=== PATIENT | female | born 1965 | race Caucasian/White ===

== ENCOUNTER → 2019-10-21 15:23 | Outpatient (BNVA) | payer BC, SELFPAY | PROVIDERS: Family Provider Nurse Practitioner Family; PCP Nurse Practitioner Family; Visit Provider Nurse Practitioner Family | DX: E11.9 Type 2 diabetes mellitus without complications (principal) | CPT/HCPCS: 83036 ==

== ENCOUNTER → 2020-04-21 15:59 | Outpatient (BNVA) | payer BC, SELFPAY | PROVIDERS: Family Provider Nurse Practitioner Family; PCP Nurse Practitioner Family; Visit Provider Nurse Practitioner Family | DX: E11.9 Type 2 diabetes mellitus without complications (principal) | CPT/HCPCS: 83036 ==

== ENCOUNTER → 2020-10-20 15:12 | Outpatient (BNVA) | payer BC, SELFPAY | PROVIDERS: Family Provider Nurse Practitioner Family; PCP Nurse Practitioner Family; Visit Provider Nurse Practitioner Family | DX: E11.9 Type 2 diabetes mellitus without complications (principal); M65.311 Trigger thumb, right thumb; E04.9 Nontoxic goiter, unspecified | CPT/HCPCS: 82043; 83036 ==

== ENCOUNTER 2021-01-21 16:19 | Emergency (ER) | payer BC, SELFPAY ==
[2021-01-21 16:41] VITALS: BP 134/89; PULSE 100; RESP 17; TEMP 37.3; O2SAT 96
--- NOTE | 2021-01-21 16:54 | W.ED.COVID ---
Documented by User: Rayray Aleman MD 01/23/21 11:26 HPI - COVID General: Chief Complaint: COVID symptoms Stated Complaint: SOB COUGH N/V Time Seen by Provider: 01/21/21 16:53 Triage information: No fever, cough or shortness of breath. No known COVID + exposure last 14 days History of Present Illness: HPI Narrative: Ms Del Toro is a 55-year-old lady with history of diabetes on oral agents who presents emergency department due to Covid-like symptoms. Symptom onset was approximately 6 days ago. She endorses initially having diarrhea, nausea, vomiting. She subsequently developed cough, headache, fevers, chills, and generalized malaise. Overall the course of symptoms has persisted and worsened. The intensity is moderate to severe. Her is ill with similar symptoms. She has not been vaccinated against Covid. There are no other specific factors the patient can identify as far as provoking, exacerbating, alleviating with exception of [id number] Tylenol which temporarily improves her symptoms. COVID Results: SARS-CoV-2 Antigen (Rapid) Negative (Negative) 01/21/21 17:46 01/21/21 SARS-CoV-2 RNA (RT-PCR) Pending 01/21/21 17:46 01/21/21 Review of Systems General: Reports: 10 or more systems reviewed and unremarkable except in HPI and below Narrative: CONSTITUTIONAL: positive for fever, fatigue, weakness EYES - denies pain, denies loss of vision EARS - denies ear issues. NOSE - denies congestion or rhinorrhea. THROAT - denies sore throat or difficulty swallowing. CARDIOVASCULAR - Chest discomfort with cough but not at rest RESPIRATORY - postiive fpr shortness of breath and cough GASTROINTESTINAL - positive for abdominal pain, nausea, and vomiting, no changes in bowel habits GENITOURINARY - denies dysuria or urinary frequency MUSCULOSKELETAL- denies deformity. Generalized arthralgias and myalgias. SKIN - denies rashes or new changed skin lesions NEUROLOGIC - denies focal weakness or sensory changes HEMATOLOGIC/LYMPHATIC - denies easy bruising or lymphadenopathy. [facility] ED PFS: Medical History (Updated 01/21/21 @ 19:26 by Rayray Aleman MD) Type 2 diabetes mellitus Social History Smoking and tobacco status: former smoker Alcohol intake: never Physical Exam Narrative: EXAM NARRATIVE: GENERAL/CONSTITUTIONAL - mildly ill-appearing. No acute distress. Eyes - PERRL, no conjunctival injection ENMT - Atraumatic external nose and ears. Moist mucous membranes NECK - supple. trachea midline CARDIOVASCULAR - regular rate and rhythm. Peripheral pulses 2+ and equal RESPIRATORY - clear to auscultation bilaterally. No retractions or accessory muscle use. ABDOMEN/GI - Mildly tender to palpation generally. No tenderness to percussion or evidence of peritonitis MSK - Extremities without obvious deformity or tenderness to palpation SKIN - Warm, Dry NEURO - alert and appropriately oriented. strength and sensation intact. Moves all extremities equally. PSYCH - Appropriate mood and affect Course ED course: - Patient was seen and evaluated by me at bedside - Patient placed on cardiac monitors, IV access obtained - Initial evaluation notable for mildly ill appearance, no acute distress -Symptom treatments ordered - Labs notable for no leukocytosis, mild increased platelet count. Metabolic panel notable for mild dehydration and elevated lactate. CRP elevated. No evidence of urinary tract infection. - Given degree of abdominal discomfort associated with symptoms CT scan imaging ordered. Given respiratory symptoms chest x-ray ordered. Initial review of chest x-ray with minimal opacities which are somewhat underwhelming given patient's initial clinical appearance. - Patient care handed off to overnight ED physician pending completion of CT scan and reevaluation. Vital Signs: Vital signs: Vital Signs Temperature 99.2 F 01/21/21 16:41 Pulse Rate 94 01/21/21 20:40 Respiratory Rate 24 H 01/21/21 20:40 Blood Pressure 110/74 01/21/21 20:40 Pulse Oximetry 94 01/21/21 20:40 [facility] - COVID Medical Records: Attestation: I reviewed the patient's medical records. Lab Data: Attestation: I reviewed the patient's lab results. Labs: Lab Results 01/21/21 01/21/21 01/21/21 Range/Units 16:48 17:28 17:46 WBC (4.0-10.0) 10^3/ uL RBC (4.1-5.3) 10^6/u L Hgb (11.5-15.3) g/dL Hct (37.0-47.0) % MCV (81-99) fl MCH (28.0-34.0) pg MCHC (30.0-36.0) g/dL RDW (12.1-15.1) % Plt Count (130-400) 10^3/c mm MPV (7.4-10.4) fL Neut % (Auto) % Lymph % (Auto) % Bartholomew % (Auto) % Eos % (Auto) % Baso % (Auto) % Neut # (Auto) (1.8-7.7) 10^3/u L Lymph # (Auto) (0.8-4.8) 10^3/u L Bartholomew # (Auto) (0.2-0.9) 10^3/u L Eos # (Auto) (0.0-0.8) 10^3/u L Baso # (Auto) (0.0-0.1) 10^3/u L Nucleated RBC % (a uto) % Nucleated RBCs # /100WBC Sodium (136-145) mmol/L Potassium (3.5-5.1) mmol/L Chloride (98-107) mmol/L Carbon Dioxide (22-29) mmol/L Anion Gap (5-19) BUN (6-20) mg/dL Creatinine (0.5-0.9) mg/dL GFR Calculation (90-130) mL/min Glucose (65-115) mg/dL POC Glucose 183 H (70-110) mg/dL Calculated Osmolal ity (285-295) mOsm/k g Lactate (0.5-2.2) mmol/L Calcium (8.5-10.5) mg/dL Total Bilirubin (0.15-1.2) mg/dL AST (0-32) U/L ALT (0-33) U/L Alkaline Phosphata se (35-105) IU/L Troponin T Baselin e (0-10) ng/L Troponin T 120 Min [place] (0-10) ng/L Delta Troponin T (0-10) ABS# C-Reactive Protein (0.0-4.9) mg/L Total Protein (6.6-8.7) g/dL Albumin (3.5-5.2) g/dL Globulin (1.3-4.6) g/dL Procalcitonin (0-0.5) ng/mL TSH (0.27-4.20) uIU/ mL Urine Color Dark yellow (Yellow) Urine Appearance Clear (CLEAR) Urine pH 5 (5-7) Ur Specific Gravit y 1.015 (1.005-1.030) Urine Protein Trace (Negative) Urine Glucose (UA) Norm (Normal) Urine Ketones 1+ H (Negative) Urine Blood Neg (Negative) Urine Nitrate Negative (Negative) Urine Bilirubin 1+ H (Negative) Urine Urobilinogen 1 H (Negative) mg/dL Ur Leukocyte Ct ase Negative (Negative) Urine RBC None (0-2) /hpf Urine WBC 0-4 H (0-5) /hpf Ur Squamous Epith Cells 5-10 H (0-5) /hpf Amorphous Sediment Not Reportable Urine Bacteria Trace (NONE) /hpf SARS-CoV-2 Ag (Rap id) Negative (Negative) 01/21/21 01/21/21 01/21/21 Range/Units 17:47 17:47 17:47 WBC 9.0 (4.0-10.0) 10^3/ uL RBC 4.73 (4.1-5.3) 10^6/u L Hgb 14.3 (11.5-15.3) g/dL Hct 41.5 (37.0-47.0) % MCV 87.7 (81-99) fl MCH 30.2 (28.0-34.0) pg MCHC 34.5 (30.0-36.0) g/dL RDW 11.7 L (12.1-15.1) % Plt Count 493 H (130-400) 10^3/c mm MPV 9.3 (7.4-10.4) fL Neut % (Auto) 70.4 % Lymph % (Auto) 19.3 % Bartholomew % (Auto) 9.2 % Eos % (Auto) 0.2 % Baso % (Auto) 0.2 % Neut # (Auto) 6.34 (1.8-7.7) 10^3/u L Lymph # (Auto) 1.7 (0.8-4.8) 10^3/u L Bartholomew # (Auto) 0.8 (0.2-0.9) 10^3/u L Eos # (Auto) 0.0 (0.0-0.8) 10^3/u L Baso # (Auto) 0.0 (0.0-0.1) 10^3/u L Nucleated RBC % (a uto) 0 % Nucleated RBCs # 0.0 /100WBC Sodium 136 (136-145) mmol/L Potassium 3.3 L (3.5-5.1) mmol/L Chloride 92 L (98-107) mmol/L Carbon Dioxide 27 (22-29) mmol/L Anion Gap 20.3 H (5-19) BUN 19 (6-20) mg/dL Creatinine 0.7 (0.5-0.9) mg/dL GFR Calculation 86.9 L (90-130) mL/min Glucose 148 H (65-115) mg/dL POC Glucose (70-110) mg/dL Calculated Osmolal ity 287 (285-295) mOsm/k g Lactate 2.9 H (0.5-2.2) mmol/L Calcium 9.2 (8.5-10.5) mg/dL Total Bilirubin 0.4 (0.15-1.2) mg/dL AST 27 (0-32) U/L ALT 22 (0-33) U/L Alkaline Phosphata se 76 (35-105) IU/L Troponin T Baselin e (0-10) ng/L Troponin T 120 Min [place] (0-10) ng/L Delta Troponin T (0-10) ABS# C-Reactive Protein 39.3 H (0.0-4.9) mg/L Total Protein 7.3 (6.6-8.7) g/dL Albumin 4.2 (3.5-5.2) g/dL Globulin 3.1 (1.3-4.6) g/dL Procalcitonin 0.11 (0-0.5) ng/mL TSH 3.83 (0.27-4.20) uIU/ mL Urine Color (Yellow) Urine Appearance (CLEAR) Urine pH (5-7) Ur Specific Gravit y (1.005-1.030) Urine Protein (Negative) Urine Glucose (UA) (Normal) Urine Ketones (Negative) Urine Blood (Negative) Urine Nitrate (Negative) Urine Bilirubin (Negative) Urine Urobilinogen (Negative) mg/dL Ur Leukocyte Ct ase (Negative) Urine RBC (0-2) /hpf Urine WBC (0-5) /hpf Ur Squamous Epith Cells (0-5) /hpf Amorphous Sediment Urine Bacteria (NONE) /hpf SARS-CoV-2 Ag (Rap id) (Negative) 01/21/21 01/21/21 Range/Units 17:47 19:45 WBC (4.0-10.0) 10^3/ uL RBC (4.1-5.3) 10^6/u L Hgb (11.5-15.3) g/dL Hct (37.0-47.0) % MCV (81-99) fl MCH (28.0-34.0) pg MCHC (30.0-36.0) g/dL RDW (12.1-15.1) % Plt Count (130-400) 10^3/c mm MPV (7.4-10.4) fL Neut % (Auto) % Lymph % (Auto) % Bartholomew % (Auto) % Eos % (Auto) % Baso % (Auto) % Neut # (Auto) (1.8-7.7) 10^3/u L Lymph # (Auto) (0.8-4.8) 10^3/u L Bartholomew # (Auto) (0.2-0.9) 10^3/u L Eos # (Auto) (0.0-0.8) 10^3/u L Baso # (Auto) (0.0-0.1) 10^3/u L Nucleated RBC % (a uto) % Nucleated RBCs # /100WBC Sodium (136-145) mmol/L Potassium (3.5-5.1) mmol/L Chloride (98-107) mmol/L Carbon Dioxide (22-29) mmol/L Anion Gap (5-19) BUN (6-20) mg/dL Creatinine (0.5-0.9) mg/dL GFR Calculation (90-130) mL/min Glucose (65-115) mg/dL POC Glucose (70-110) mg/dL Calculated Osmolal ity (285-295) mOsm/k g Lactate (0.5-2.2) mmol/L Calcium (8.5-10.5) mg/dL Total Bilirubin (0.15-1.2) mg/dL AST (0-32) U/L ALT (0-33) U/L Alkaline Phosphata se (35-105) IU/L Troponin T Baselin e 8 (0-10) ng/L Troponin T 120 Min [place] 9.29 (0-10) ng/L Delta Troponin T 1.29 (0-10) ABS# C-Reactive Protein (0.0-4.9) mg/L Total Protein (6.6-8.7) g/dL Albumin (3.5-5.2) g/dL Globulin (1.3-4.6) g/dL Procalcitonin (0-0.5) ng/mL TSH (0.27-4.20) uIU/ mL Urine Color (Yellow) Urine Appearance (CLEAR) Urine pH (5-7) Ur Specific Gravit y (1.005-1.030) Urine Protein (Negative) Urine Glucose (UA) (Normal) Urine Ketones (Negative) Urine Blood (Negative) Urine Nitrate (Negative) Urine Bilirubin (Negative) Urine Urobilinogen (Negative) mg/dL Ur Leukocyte Ct ase (Negative) Urine RBC (0-2) /hpf Urine WBC (0-5) /hpf Ur Squamous Epith Cells (0-5) /hpf Amorphous Sediment Urine Bacteria (NONE) /hpf SARS-CoV-2 Ag (Rap id) (Negative) EKG Data: EKG 1: Attestation: I personally reviewed and interpreted this EKG as follows: EKG interpretation date: 01/21/21 EKG interpretation time: 17:20 Prior EKG tracings: not available for review Ischemic changes: non-specific ST-T wave changes Interpretation: Twelve-lead EKG shows a regular sinus rhythm at a rate of 96. WA interval 159, QRS duration 104, QTc 476. Left axis deviation. Interpretation: Sinus rhythm. Nonspecific ST segment abnormalities. COVID Results: SARS-CoV-2 Antigen (Rapid) Negative (Negative) 01/21/21 17:46 01/21/21 SARS-CoV-2 RNA (RT-PCR) Pending 01/21/21 17:46 01/21/21 Discharge Plan Discharge Patient Disposition: Home Clinical Impression: Cough, Dehydration, Elevated lactic acid level, Nausea & vomiting, Diarrhea Condition: Stable Prescriptions: New Zofran 4 mg tablet 4 mg PO Q6H PRN (Reason: nausea and vomiting) Qty: 10 RF: 0 No Action ibuprofen 800 mg tablet 800 mg PO TID Qty: 20 RF: 0 Hold Instructions: Doctor's Order meloxicam 15 mg tablet 15 mg PO DAILY Qty: 30 RF: 0 acetaminophen [Tylenol] 325 mg capsule 325 mg PO QID PRNRF: 0 lisinopril 30 mg tablet See Rx Instructions .ROUTE .COMPLEX Qty: 30 RF: 4 hydrochlorothiazide 25 mg tablet See Rx Instructions .ROUTE .COMPLEX Qty: 30 RF: 3 metformin 1,000 mg tablet See Rx Instructions .ROUTE .COMPLEX Qty: 60 RF: 2 Discharge Orders: Discharge ED (Routine); Ordered 01/21/21 Ordered By: Ayden Barron Referrals: Cinthia Saleem, HEALTH SPECIALIST [Primary Care Provider] - 4-7 days Discharge Diet: Usual diet Discharge Activity: Resume usual activity Patient Instructions: Acute Nausea and Vomiting (ED), Abdominal Pain (ED), Dyspnea (ED), Acute Cough (ED), Opioid Safety Activity Restrictions/Additional Instructions: Thank you for visiting the emergency department. You were seen and evaluated for generalized symptoms. The exact cause of this is somewhat unclear. Your rapid Covid test was negative however it is definitely possible that your send out test will return positive. If it does, you will get a call. You should then have your provider schedule an outpatient infusion of monoclonal antibody for the virus. Please follow-up with your primary care provider. Please ensure that you are staying hydrated. Please return to the emergency department for worsening of your current symptoms, inability to tolerate oral intake, shortness of breath, chest pain, or anything else that you are concerned about and feel needs emergency department evaluation. Coding Level of Care Code ED Top Carrier for g Fwd Documented by User: Ayden Barron, 01/21/21 20:00 HPI - COVID General: Chief Complaint: COVID symptoms Stated Complaint: SOB COUGH N/V Time Seen by Provider: 01/21/21 16:53 COVID Results: SARS-CoV-2 Antigen (Rapid) Negative (Negative) 01/21/21 17:46 01/21/21 SARS-CoV-2 RNA (RT-PCR) Pending 01/21/21 17:46 01/21/21 [facility] ED [facility]: Medical History (Updated 01/21/21 @ 19:26 by Rayray Aleman MD) Type 2 diabetes mellitus Social History Smoking and tobacco status: former smoker Alcohol intake: never Course Vital Signs: Vital signs: Vital Signs Temperature 99.2 F 01/21/21 16:41 Pulse Rate 94 01/21/21 20:40 Respiratory Rate 24 H 01/21/21 20:40 Blood Pressure 110/74 01/21/21 20:40 Pulse Oximetry 94 01/21/21 20:40 MDM - COVID MDM Narrative: Medical decision making narrative: 55-year-old female checked out to me by Dr. aleman at shift change. This lady does have COVID-19 symptoms. Her rapid test is negative, however her PCR will likely return positive. Her is here with symptoms to. She did have some abdominal complaints, so bili was CT. It reveals peripheral groundglass infiltrates of the lungs likely representing viral pneumonia/pneumonitis. There is also an indeterminate 8 mm hypodensity in the distal pancreas which is nonemergent, and not likely the cause of any symptoms. She was counseled on the availability of monoclonal antibody infusion as an outpatient should her PCR returned positive. Otherwise symptomatic treatment Lab Data: Labs: Lab Results 01/21/21 01/21/21 01/21/21 Range/Units 16:48 17:28 17:46 WBC (4.0-10.0) 10^3/ uL RBC (4.1-5.3) 10^6/u L Hgb (11.5-15.3) g/dL Hct (37.0-47.0) % MCV (81-99) fl MCH (28.0-34.0) pg MCHC (30.0-36.0) g/dL RDW (12.1-15.1) % Plt Count (130-400) 10^3/c mm MPV (7.4-10.4) fL Neut % (Auto) % Lymph % (Auto) % Bartholomew % (Auto) % Eos % (Auto) % Baso % (Auto) % Neut # (Auto) (1.8-7.7) 10^3/u L Lymph # (Auto) (0.8-4.8) 10^3/u L Bartholomew # (Auto) (0.2-0.9) 10^3/u L Eos # (Auto) (0.0-0.8) 10^3/u L Baso # (Auto) (0.0-0.1) 10^3/u L Nucleated RBC % (a uto) % Nucleated RBCs # /100WBC Sodium (136-145) mmol/L Potassium (3.5-5.1) mmol/L Chloride (98-107) mmol/L Carbon Dioxide (22-29) mmol/L Anion Gap (5-19) BUN (6-20) mg/dL Creatinine (0.5-0.9) mg/dL GFR Calculation (90-130) mL/min Glucose (65-115) mg/dL POC Glucose 183 H (70-110) mg/dL Calculated Osmolal ity (285-295) mOsm/k g Lactate (0.5-2.2) mmol/L Calcium (8.5-10.5) mg/dL Total Bilirubin (0.15-1.2) mg/dL AST (0-32) U/L ALT (0-33) U/L Alkaline Phosphata se (35-105) IU/L Troponin T Baselin e (0-10) ng/L Troponin T 120 Min [place] (0-10) ng/L Delta Troponin T (0-10) ABS# C-Reactive Protein (0.0-4.9) mg/L Total Protein (6.6-8.7) g/dL Albumin (3.5-5.2) g/dL Globulin (1.3-4.6) g/dL Procalcitonin (0-0.5) ng/mL TSH (0.27-4.20) uIU/ mL Urine Color Dark yellow (Yellow) Urine Appearance Clear (CLEAR) Urine pH 5 (5-7) Ur Specific Gravit y 1.015 (1.005-1.030) Urine Protein Trace (Negative) Urine Glucose (UA) Norm (Normal) Urine Ketones 1+ H (Negative) Urine Blood Neg (Negative) Urine Nitrate Negative (Negative) Urine Bilirubin 1+ H (Negative) Urine Urobilinogen 1 H (Negative) mg/dL Ur Leukocyte Ct ase Negative (Negative) Urine RBC None (0-2) /hpf Urine WBC 0-4 H (0-5) /hpf Ur Squamous Epith Cells 5-10 H (0-5) /hpf Amorphous Sediment Not Reportable Urine Bacteria Trace (NONE) /hpf SARS-CoV-2 Ag (Rap id) Negative (Negative) 01/21/21 01/21/21 01/21/21 Range/Units 17:47 17:47 17:47 WBC 9.0 (4.0-10.0) 10^3/ uL RBC 4.73 (4.1-5.3) 10^6/u L Hgb 14.3 (11.5-15.3) g/dL Hct 41.5 (37.0-47.0) % MCV 87.7 (81-99) fl MCH 30.2 (28.0-34.0) pg MCHC 34.5 (30.0-36.0) g/dL RDW 11.7 L (12.1-15.1) % Plt Count 493 H (130-400) 10^3/c mm MPV 9.3 (7.4-10.4) fL Neut % (Auto) 70.4 % Lymph % (Auto) 19.3 % Bartholomew % (Auto) 9.2 % Eos % (Auto) 0.2 % Baso % (Auto) 0.2 % Neut # (Auto) 6.34 (1.8-7.7) 10^3/u L Lymph # (Auto) 1.7 (0.8-4.8) 10^3/u L Bartholomew # (Auto) 0.8 (0.2-0.9) 10^3/u L Eos # (Auto) 0.0 (0.0-0.8) 10^3/u L Baso # (Auto) 0.0 (0.0-0.1) 10^3/u L Nucleated RBC % (a uto) 0 % Nucleated RBCs # 0.0 /100WBC Sodium 136 (136-145) mmol/L Potassium 3.3 L (3.5-5.1) mmol/L Chloride 92 L (98-107) mmol/L Carbon Dioxide 27 (22-29) mmol/L Anion Gap 20.3 H (5-19) BUN 19 (6-20) mg/dL Creatinine 0.7 (0.5-0.9) mg/dL GFR Calculation 86.9 L (90-130) mL/min Glucose 148 H (65-115) mg/dL POC Glucose (70-110) mg/dL Calculated Osmolal ity 287 (285-295) mOsm/k g Lactate 2.9 H (0.5-2.2) mmol/L Calcium 9.2 (8.5-10.5) mg/dL Total Bilirubin 0.4 (0.15-1.2) mg/dL AST 27 (0-32) U/L ALT 22 (0-33) U/L Alkaline Phosphata se 76 (35-105) IU/L Troponin T Baselin e (0-10) ng/L Troponin T 120 Min [place] (0-10) ng/L Delta Troponin T (0-10) ABS# C-Reactive Protein 39.3 H (0.0-4.9) mg/L Total Protein 7.3 (6.6-8.7) g/dL Albumin 4.2 (3.5-5.2) g/dL Globulin 3.1 (1.3-4.6) g/dL Procalcitonin 0.11 (0-0.5) ng/mL TSH 3.83 (0.27-4.20) uIU/ mL Urine Color (Yellow) Urine Appearance (CLEAR) Urine pH (5-7) Ur Specific Gravit y (1.005-1.030) Urine Protein (Negative) Urine Glucose (UA) (Normal) Urine Ketones (Negative) Urine Blood (Negative) Urine Nitrate (Negative) Urine Bilirubin (Negative) Urine Urobilinogen (Negative) mg/dL Ur Leukocyte Ct ase (Negative) Urine RBC (0-2) /hpf Urine WBC (0-5) /hpf Ur Squamous Epith Cells (0-5) /hpf Amorphous Sediment Urine Bacteria (NONE) /hpf SARS-CoV-2 Ag (Rap id) (Negative) 01/21/21 01/21/21 Range/Units 17:47 19:45 WBC (4.0-10.0) 10^3/ uL RBC (4.1-5.3) 10^6/u L Hgb (11.5-15.3) g/dL Hct (37.0-47.0) % MCV (81-99) fl MCH (28.0-34.0) pg MCHC (30.0-36.0) g/dL RDW (12.1-15.1) % Plt Count (130-400) 10^3/c mm MPV (7.4-10.4) fL Neut % (Auto) % Lymph % (Auto) % Bartholomew % (Auto) % Eos % (Auto) % Baso % (Auto) % Neut # (Auto) (1.8-7.7) 10^3/u L Lymph # (Auto) (0.8-4.8) 10^3/u L Bartholomew # (Auto) (0.2-0.9) 10^3/u L Eos # (Auto) (0.0-0.8) 10^3/u L Baso # (Auto) (0.0-0.1) 10^3/u L Nucleated RBC % (a uto) % Nucleated RBCs # /100WBC Sodium (136-145) mmol/L Potassium (3.5-5.1) mmol/L Chloride (98-107) mmol/L Carbon Dioxide (22-29) mmol/L Anion Gap (5-19) BUN (6-20) mg/dL Creatinine (0.5-0.9) mg/dL GFR Calculation (90-130) mL/min Glucose (65-115) mg/dL POC Glucose (70-110) mg/dL Calculated Osmolal ity (285-295) mOsm/k g Lactate (0.5-2.2) mmol/L Calcium (8.5-10.5) mg/dL Total Bilirubin (0.15-1.2) mg/dL AST (0-32) U/L ALT (0-33) U/L Alkaline Phosphata se (35-105) IU/L Troponin T Baselin e 8 (0-10) ng/L Troponin T 120 Min [place] 9.29 (0-10) ng/L Delta Troponin T 1.29 (0-10) ABS# C-Reactive Protein (0.0-4.9) mg/L Total Protein (6.6-8.7) g/dL Albumin (3.5-5.2) g/dL Globulin (1.3-4.6) g/dL Procalcitonin (0-0.5) ng/mL TSH (0.27-4.20) uIU/ mL Urine Color (Yellow) Urine Appearance (CLEAR) Urine pH (5-7) Ur Specific Gravit y (1.005-1.030) Urine Protein (Negative) Urine Glucose (UA) (Normal) Urine Ketones (Negative) Urine Blood (Negative) Urine Nitrate (Negative) Urine Bilirubin (Negative) Urine Urobilinogen (Negative) mg/dL Ur Leukocyte Ct ase (Negative) Urine RBC (0-2) /hpf Urine WBC (0-5) /hpf Ur Squamous Epith Cells (0-5) /hpf Amorphous Sediment Urine Bacteria (NONE) /hpf SARS-CoV-2 Ag (Rap id) (Negative) COVID Results: SARS-CoV-2 Antigen (Rapid) Negative (Negative) 01/21/21 17:46 01/21/21 SARS-CoV-2 RNA (RT-PCR) Pending 01/21/21 17:46 01/21/21 Discharge Plan Discharge Patient Disposition: Home Clinical Impression: Cough, Dehydration, Elevated lactic acid level, Nausea & vomiting, Diarrhea Condition: Stable Prescriptions: New Zofran 4 mg tablet 4 mg PO Q6H PRN (Reason: nausea and vomiting) Qty: 10 RF: 0 No Action ibuprofen 800 mg tablet 800 mg PO TID Qty: 20 RF: 0 Hold Instructions: Doctor's Order meloxicam 15 mg tablet 15 mg PO DAILY Qty: 30 RF: 0 acetaminophen [Tylenol] 325 mg capsule 325 mg PO QID PRNRF: 0 lisinopril 30 mg tablet See Rx Instructions .ROUTE .COMPLEX Qty: 30 RF: 4 hydrochlorothiazide 25 mg tablet See Rx Instructions .ROUTE .COMPLEX Qty: 30 RF: 3 metformin 1,000 mg tablet See Rx Instructions .ROUTE .COMPLEX Qty: 60 RF: 2 Discharge Orders: Discharge ED (Routine); Ordered 01/21/21 Ordered By: Ayden Barron Referrals: Cinthia Saleem NP [Primary Care Provider] - 4-7 days Discharge Diet: Usual diet Discharge Activity: Resume usual activity Patient Instructions: Acute Nausea and Vomiting (ED), Abdominal Pain (ED), Dyspnea (ED), Acute Cough (ED), Opioid Safety Activity Restrictions/Additional Instructions: Thank you for visiting the emergency department. You were seen and evaluated for generalized symptoms. The exact cause of this is somewhat unclear. Your rapid Covid test was negative however it is definitely possible that your send out test will return positive. If it does, you will get a call. You should then have your provider schedule an outpatient infusion of monoclonal antibody for the virus. Please follow-up with your primary care provider. Please ensure that you are staying hydrated. Please return to the emergency department for worsening of your current symptoms, inability to tolerate oral intake, shortness of breath, chest pain, or anything else that you are concerned about and feel needs emergency department evaluation. Coding Level of Care Code ED Top Carrier for Xavier Wheatley
[2021-01-21 17:03] LABS: Glucose Point of Care 183 mg/dL (70-110)
--- NOTE | 2021-01-21 17:04 | XRR_ITS ---
PROCEDURE INFORMATION: Exam: XR Chest Exam date and time: 01/21/2021 5:04 PM Age: 55 years old Clinical indication: Cough and shortness of breath; Additional info: Cough, SOB TECHNIQUE: Imaging protocol: XR of the chest. Views: 1 view. COMPARISON: No relevant prior studies available. FINDINGS: Lungs: Minimal ground-glass opacity noted in the peripheral lateral right upper lobe which may be seen with early infiltrates. Pleural spaces: Unremarkable. No pleural effusion. No pneumothorax. Heart/Mediastinum: No cardiomegaly. Bones/joints: No acute fracture. XR/XR chest 1V portable [id number] IMPRESSION: Minimal ground-glass opacity noted in the peripheral lateral right upper lobe which may be seen with early infiltrates.
--- NOTE | 2021-01-21 17:06 | ECG_ITS ---
[facility] Test Date: 2021-01-21 Pat Name: Martina Del Toro Department: Room: Gender: Female Data Storage Specialist: : [id number] Requested By: Rayray Aleman Order Number: [id number] Bam MD: Shaista Jones M.D. Measurements Intervals [place] Rate: 96 P: 39 MA: 159 QRS: -13 QRSD: 104 T: 15 QT: 377 QTc: 476 Interpretive Statements SINUS RHYTHM POSSIBLE ANTERIOR MYOCARDIAL INFARCTION , PROBABLY OLD [30 ms Q WAVE IN V3/V4, OR R < 0.2 mV IN V4] No previous ECG available for comparison Electronically Signed On 01-22-2021 23:49:40 CDT by Shaista Jones M.D. [id number]
[2021-01-21] MEDS: acetaminophen 325 mg Tablet 650 MG PO (17:36)
[2021-01-21] MEDS: ketorolac 30 mg/mL INJ 15 MG IVP (17:38)
[2021-01-21] MEDS: ondansetron 2 mg/ML SDV 2 mL 4 MG IVP (17:40)
[2021-01-21] MEDS: sodium chloride 0.9% 500 ML IV (17:41)
[2021-01-21 17:45] VITALS: O2SAT 91
[2021-01-21 17:49] VITALS: BP 152/85; PULSE 94; RESP 16; O2SAT 92
[2021-01-21 17:58] LABS: Basophils % 0.2 %; Eosinophils % 0.2 %; Hematocrit 41.5 % (37.0-47.0); Hemoglobin 14.3 g/dL (11.5-15.3); Lymphocytes # 1.7 10^3/uL (0.8-4.8); Lymphocytes % 19.3 %; Mean Corpuscular HGB Conc 34.5 g/dL (30.0-36.0); Mean Corpuscular Hemoglobin 30.2 pg (28.0-34.0); Mean Corpuscular Volume 87.7 fl (81-99); Mean Platelet Volume 9.3 fL (7.4-10.4); Monocytes # 0.8 10^3/uL (0.2-0.9); Monocytes % 9.2 %; Neutrophils # 6.34 10^3/uL (1.8-7.7); Neutrophils % 70.4 %; Nucleated Red Blood Cells % 0 %; Platelet Count 493 10^3/cmm (130-400); Red Blood Count 4.73 10^6/uL (4.1-5.3); Red Cell Distribution Width 11.7 % (12.1-15.1)
[2021-01-21 18:05] LABS: Add Urine Microscopic? YES; Bilirubin Urine 1+ (Negative); Blood Urine Neg (Negative); Glucose Urine UA Norm (Normal); Ketones Urine 1+ (Negative); Leukocyte Esterase Urine Negative (Negative); Nitrate Urine Negative (Negative); Protein Urine Trace (Negative); Specific Gravity, Urine 1.015 (1.005-1.030); Urine Appearance Clear (CLEAR); Urine Color Dark Yellow (Yellow); Urobilinogen Urine 1 mg/dL (Negative); pH Urine 5 (5-7)
[2021-01-21 18:06] LABS: Add Urine Culture? No; Bacteria Urine TRACE /hpf; WBC Urine 0-4 /hpf (0-5)
[2021-01-21 18:17] LABS: Lactate (Lactic Acid level) 2.9 mmol/L (0.5-2.2)
[2021-01-21 18:26] LABS: Slide Review Slide Review Perform
[2021-01-21 18:27] LABS: Procalcitonin 0.11 ng/mL (0-0.5); Thyroid Stimulating Hormone 3.83 uIU/mL (0.27-4.20)
[2021-01-21 18:30] LABS: SARS Covid-2 Antigen Negative (Negative)
[2021-01-21 18:37] LABS: Troponin(5th) Baseline 8 ng/L (0-10)
[2021-01-21 18:39] LABS: Alanine Aminotransferase 22 U/L (0-33); Albumin Level 4.2 g/dL (3.5-5.2); Alkaline Phosphatase 76 IU/L (35-105); Anion Gap 20.3 (5-19); Aspartate Amino Transferase 27 U/L (0-32); Blood Urea Nitrogen 19 mg/dL (6-20); C Reactive Protein 39.3 mg/L (0.0-4.9); Calcium 9.2 mg/dL (8.5-10.5); Carbon Dioxide 27 mmol/L (22-29); Chloride 92 mmol/L (98-107); Globulin 3.1 g/dL (1.3-4.6); Glomerular Filtration Rate 86.9 mL/min (90-130); Glucose 148 mg/dL (65-115); Osmolality Calculated 287 mOsm/kg (285-295); Potassium 3.3 mmol/L (3.5-5.1); Sodium 136 mmol/L (136-145); Total Bilirubin 0.4 mg/dL (0.15-1.2); Total Protein 7.3 g/dL (6.6-8.7)
[2021-01-21 18:44] VITALS: BP 108/64; PULSE 80; RESP 20; O2SAT 96
--- NOTE | 2021-01-21 18:51 | CTR_ITS ---
PROCEDURE INFORMATION: Exam: CT Abdomen And Pelvis With Contrast Exam date and time: 01/21/2021 6:51 PM Age: 55 years old Clinical indication: Fever and nausea and vomiting; Prior surgery; Surgery date: 6+ months; Surgery type: Hyst; Patient HX: Abd pain n/v/d and fever x 6 days; Additional info: Sirs, unclear source, abd pain, ? colitis TECHNIQUE: Imaging protocol: Computed tomography of the abdomen and pelvis with contrast. Radiation optimization: All CT scans at this facility use at least one of these dose optimization techniques: automated exposure control; mA and/or kV adjustment per patient size (includes targeted exams where dose is matched to clinical indication); or iterative reconstruction. Contrast material: OMNI 300; Contrast volume: 95 ml; Contrast route: INTRAVENOUS (IV); COMPARISON: CR (CHEST, ) 01/21/2021 5:12 PM RADIATION DOSE METRICS: Total DLP (mGy-cm): 1880.41 FINDINGS: Lungs: Peripheral ground-glass opacities in the lungs likely representing viral pneumonia. Liver: Fatty liver. Hepatomegaly. Gallbladder and bile ducts: No calcified stones. No ductal dilation. Pancreas: Indeterminate 8 mm hypodensity in the distal pancreas. Follow-up nonemergent evaluation with MRI may be helpful for further characterization. No peripancreatic inflammation. Spleen: No splenomegaly. Adrenal glands: Normal. No mass. Kidneys and ureters: No hydronephrosis. Stomach and bowel: No obstruction. No mucosal thickening. Appendix: No evidence of appendicitis. Intraperitoneal space: No free air. No significant fluid collection. Vasculature: Retroaortic left renal vein. Lymph nodes: No enlarged lymph nodes. Urinary bladder: Unremarkable as visualized. Reproductive: Status post hysterectomy. Bones/joints: Unremarkable. No acute fracture. Soft tissues: Unremarkable. CT/CT abdomen pelvis w con* [id number] IMPRESSION: 1. Peripheral ground-glass opacities in the lungs likely representing viral pneumonia. 2. Indeterminate 8 mm hypodensity in the distal pancreas. Follow-up nonemergent evaluation with MRI may be helpful for further characterization. Otherwise no acute intra-abdominal/pelvic abnormality. Radiation Dose CTDIVOL = (mGy): DLP = 1880.41 (mGy-cm)
--- NOTE | 2021-01-21 19:06 | ECG_ITS ---
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 Measurements Intervals [place] Rate: 80 P: 42 KS: 175 QRS: -12 QRSD: 98 T: 17 QT: 413 QTc: 479 Interpretive Statements SINUS RHYTHM POSSIBLE ANTERIOR MYOCARDIAL INFARCTION , PROBABLY OLD [30 ms Q WAVE IN V3/V4, OR R < 0.2 mV IN V4] INFERIOR MYOCARDIAL INFARCTION , PROBABLY OLD [40+ ms Q WAVE AND/OR ST/T ABNORMALITY IN II/aVF] Compared to ECG 01/21/2021 17:17:29 No significant changes Electronically Signed On 01-23-2021 0:06:52 CDT by Shaista Jones M.D. [id number]
[2021-01-21] MEDS: iohexol 300 mg/mL 100 mL Btl IV (19:16)
[2021-01-21] MEDS: sodium chloride 0.9% 1,000 ML 999 ML IV (20:01)
[2021-01-21 20:31] LABS: Troponin 5 2HR 9.29 ng/L (0-10); Troponin 5 2HR Delta 1.29 ABS# (0-10)
--- NOTE | 2021-01-21 20:36 | PC.NURSE ---
vo from Dr Barron, dc after 500cc NS infused
[2021-01-21 20:40] VITALS: BP 110/74; PULSE 94; RESP 24; O2SAT 94
[2021-01-23 19:32] LABS: Quest SARS-CoV-2 RNA DETECTED (NOT DETECTED)
--- NOTE | 2021-01-24 09:17 | PC.NURSE ---
notified pt of positive covid results. forwarded info to infusion center so pt can get MCA infusion per order of dr. christianson
== END 2021-01-21 20:30 | disposition home or self-care (01) ==
PROVIDERS: Emergency Medicine; Emergency Provider Emergency Medicine; PCP Nurse Practitioner Family
DX: U07.1 COVID-19 (principal); E86.0 Dehydration; R74.02 Elevation of levels of lactic acid dehydrogenase [LDH]; Z79.84 Long term (current) use of oral hypoglycemic drugs; E11.9 Type 2 diabetes mellitus without complications; Z87.891 Personal history of nicotine dependence
CPT/HCPCS: 36416; 71045; 74177; 80053; 81001; 82962; 83605; 84145; 84443; 84484; 85025; 86140; 87040; 87426; 87635; 93005; 96361; 96374; 96375; 99284; J1885; J2405; J7030; J7040; Q9967

== ENCOUNTER 2021-01-24 11:55 | Outpatient (CLI) | payer BC, SELFPAY ==
[2021-01-24 12:15] VITALS: BP 123/83; PULSE 86; RESP 16; TEMP 36.8; O2SAT 97; BMI 29.5
[2021-01-24 12:57] VITALS: BP 111/74; PULSE 87; RESP 15; O2SAT 96
[2021-01-24 13:52] VITALS: BP 120/74; PULSE 92; RESP 16; TEMP 36.8
--- NOTE | 2021-02-02 14:09 | DCPLANNER ---
manager of merchandising had message that patient received the monoclonal antibody infusion. manager of merchandising called to check on patient after receiving the infusion. Patient stated that after the infusion, she is doing fine.
== END 2021-01-24 11:56 | disposition home or self-care (01) ==
PROVIDERS: PCP Nurse Practitioner Family; Visit Provider Family Medicine
DX: U07.1 COVID-19 (principal)
CPT/HCPCS: 96365

== ENCOUNTER → 2021-09-21 08:25 | Outpatient (BNVA) | payer BC, MEDICAID, SELFPAY | PROVIDERS: PCP Nurse Practitioner Family; Visit Provider Nurse Practitioner Family | DX: E11.9 Type 2 diabetes mellitus without complications (principal); I10 Essential (primary) hypertension | CPT/HCPCS: 80053; 80061; 82043; 83036; 84443 ==

== ENCOUNTER → 2022-05-16 08:40 | Outpatient (BNVA) | payer MEDICAID, SELFPAY | PROVIDERS: PCP Nurse Practitioner Family; Visit Provider Family Medicine | DX: I10 Essential (primary) hypertension (principal); E89.0 Postprocedural hypothyroidism; E55.9 Vitamin D deficiency, unspecified | CPT/HCPCS: 80053; 80061; 82306; 84439; 84443; 84480; 85025 ==

== ENCOUNTER → 2022-06-04 16:46 | Outpatient (BNVA) | payer MEDICAID, SELFPAY | PROVIDERS: PCP Nurse Practitioner Family | DX: E89.2 Postprocedural hypoparathyroidism (principal) | CPT/HCPCS: 80048; 82310; 82652; 83970 ==

== ENCOUNTER → 2022-06-07 11:35 | Outpatient (BNVA) | payer MEDICAID, SELFPAY | PROVIDERS: PCP Nurse Practitioner Family; Visit Provider Family Medicine | DX: R05.9 Cough, unspecified (principal) | CPT/HCPCS: 87400 ==

== ENCOUNTER 2022-08-27 13:44 | Outpatient (CLI) | payer MEDICAID, SELFPAY ==
--- NOTE | 2022-08-27 14:00 | USCV_ITS ---
Martina Del Toro Age: 57 Gender: F : 1965 Exam Date: 08/27/2022 14:04 Ordering Phys: Cinthia Saleem NP Technologist: CT Exam Location: [facility] [place] Indication: BLE PAIN HISTORY: Lower extremity pain. PROCEDURES: Venous duplex imaging was performed in bilateral lower extremities. In addition, the posterior tibial and peroneal trunk were evaluated. Serial compression, augmentation maneuvers, and spectral Doppler flow evaluation were performed. FINDINGS: No evidence of DVT seen in any vessel visualized at this time. CONCLUSIONS No evidence of right lower extremity DVT. No evidence of left lower extremity DVT. Superficial Varicosities in the area of pain left calf Milton Bello MD (Electronically Signed) Final Date: 27 August 2022 17:49 S
== END 2022-08-27 13:45 | disposition home or self-care (01) ==
LOC: RAD 13:49
PROVIDERS: PCP Nurse Practitioner Family; Visit Provider Nurse Practitioner Family
DX: M79.661 Pain in right lower leg (principal); M79.662 Pain in left lower leg
CPT/HCPCS: 93970

== ENCOUNTER 2022-10-09 11:47 | Outpatient (CLI) | payer MEDICAID, SELFPAY ==
--- NOTE | 2022-10-09 12:00 | USCV_ITS ---
Martina Del Toro Age: 57 Gender: F : 1965 Exam Date: 10/09/2022 12:00 Ordering Phys: Anil Mccauley MD (Andy) ([email or web address]) Technologist: CT [place] [facility] [place]: HISTORY: PROCEDURES: FINDINGS: reflux on left from prx thigh to the dst thigh, the gsv below the knee is unidenitiable due to multiple varicosites The veins were found to be easily compressible with spontaneous blood flow. Non pulsatile flow pattern. The reflux time at the proximal, mid and distal greater saphenous vein segments on the left side were 1100, 3700 and 3100 respectively. CONCLUSIONS 1. No evidence of DVT in the above-mentioned identifiable veins. 2. Significant venous reflux of greater than of 500 ms were noted at the proximal, mid and distal segments of the greater saphenous vein on the left side. These venous segments were measuring anywhere from 0.38 to 0.45 cm in diameter. These venous segments at a depth of more than 1 cm from the surface. 3. At the below-knee level, multiple varicosities were noted. The greater saphenous vein was difficult to identify. Dr Shaista Jones MD [facility] (Electronically Signed) Final Date: 10 Oct 2022 23:52 S
== END 2022-10-09 11:48 | disposition home or self-care (01) ==
LOC: RAD 11:48
PROVIDERS: PCP Nurse Practitioner Family; Visit Provider Thoracic Surgery (Cardiothoracic Vascular Surgery)
DX: I83.90 Asymptomatic varicose veins of unspecified lower extremity (principal)
CPT/HCPCS: 93970

== ENCOUNTER → 2022-12-19 10:08 | Outpatient (BNVA) | payer MEDICAID, SELFPAY | PROVIDERS: PCP Nurse Practitioner Family; Visit Provider Internal Medicine Endocrinology, Diabetes & Metabolism | DX: E11.9 Type 2 diabetes mellitus without complications (principal); E55.9 Vitamin D deficiency, unspecified; E78.5 Hyperlipidemia, unspecified | CPT/HCPCS: 80053; 83036; 83721; 84439; 84443 ==

== ENCOUNTER → 2024-06-11 09:55 | Outpatient (BNVA) | payer OTHER, SELFPAY | PROVIDERS: PCP Nurse Practitioner Family; Visit Provider Nurse Practitioner Family | DX: I10 Essential (primary) hypertension (principal); E11.9 Type 2 diabetes mellitus without complications; E78.00 Pure hypercholesterolemia, unspecified; E55.9 Vitamin D deficiency, unspecified | CPT/HCPCS: 80053; 80061; 82043; 82306; 83036; 84443 ==

== ENCOUNTER → 2025-03-29 09:38 | Outpatient (BNVA) | payer OTHER, SELFPAY | PROVIDERS: PCP Nurse Practitioner Family; Visit Provider Nurse Practitioner Family | DX: M25.521 Pain in right elbow (principal); E11.9 Type 2 diabetes mellitus without complications; E89.0 Postprocedural hypothyroidism; I10 Essential (primary) hypertension; E55.9 Vitamin D deficiency, unspecified | CPT/HCPCS: 73080; 80053; 80061; 82043; 82306; 83036; 84443 ==

== ENCOUNTER → 2025-05-25 14:15 | Outpatient (BNVA) | payer OTHER, SELFPAY | PROVIDERS: PCP Nurse Practitioner Family; Visit Provider Nurse Practitioner Family | DX: E03.9 Hypothyroidism, unspecified (principal) | CPT/HCPCS: 84443 ==